=== PATIENT | female | born 1970 | race Caucasian/White ===

== ENCOUNTER 2018-10-10 06:44 | Emergency (ER) | payer OTHER ==
[~2018-10-10] VITALS: Ht 170.2 cm; Wt 68.0 kg
[2018-10-10] MEDS ORDERED: NITROGLYCERIN SUBLINGUAL 0.4 MG BOTTLE OF 25. SL PRN (07:00)
[2018-10-10] MEDS ORDERED: ASPIRIN 325 MG TABLET PO ONE (07:00)
--- NOTE | 2018-10-10 07:10 | PHYS DOC ---
Past Medical History Past Medical History: Arthritis Past Surgical History: , Hysterectomy Additional Past Surgical Histo: rhinoplasty, breast augmentation Alcohol Use: Occasionally Drug Use: None Adult General Chief Complaint Chief Complaint: CHEST PAIN HPI HPI Patient is a 48 year old male presented to ER today for evaluation of left- sided chest pain while she was doing CROSSF[employer], working out this morning. Patient was doing her normal [employer] routine, lifting weight, when she started having pain on the left-sided her chest, she was sweaty and felt nauseous. She stopped the work out and lay down on her back. She felt better then start working out and then started having the pain again. So she stopped and went home. She continued to have pain when she takes a deep breath. The chest pain is worse with cough or movement of her left shoulder. Patient denies any history of hypertension no history of high cholesterol no history of blood clot disorder. Patient had no history of coronary artery disease. Patient denies any family history of coronary artery disease or blood clot disorder. Patient is not a smoker, she is not on any control medication. Patient had no recent travel or operation. Review of Systems Review of Systems Constitutional: Denies fever or chills [] Eyes: Denies change in visual acuity, redness, or eye pain [] HENT: Denies nasal congestion or sore throat [] Respiratory: Denies cough or shortness of breath [] Cardiovascular: Positive for chest pain GI: Denies abdominal pain, vomiting, bloody stools or diarrhea. Positive for nausea : Denies dysuria or hematuria [] Musculoskeletal: Denies back pain or joint pain [] Integument: Denies rash or skin lesions [] Neurologic: Denies headache, focal weakness or sensory changes [] Endocrine: Denies polyuria or polydipsia [] All other systems were reviewed and found to be within normal limits, except as documented in this note. Current Medications Current Medications Current Medications Medications (Trade) Dose Ordered Sig/Karo Start Time Stop Time Status Last Admin Dose Admin Aspirin (Lacie Aspirin) 325 mg 1X ONCE 10/10/18 07:00 10/10/18 07:01 DC 10/10/18 07:20 325 MG Ketorolac Tromethamine (Toradol 30mg Vial) 30 mg 1X ONCE 10/10/18 08:15 10/10/18 08:16 DC 10/10/18 08:15 30 MG Nitroglycerin (Nitrostat) 0.4 mg PRN Q5MIN PRN 10/10/18 07:00 10/11/18 06:59 Sodium Chloride 1,000 ml @ 1,000 mls/hr 1X ONCE 10/10/18 08:15 10/10/18 09:14 10/10/18 08:15 1,000 MLS/HR Allergies Allergies Allergies Coded Allergies Type Severity Reaction Last Updated Verified No Known Drug Allergies 10/10/18 No Physical Exam Physical Exam Constitutional: Well developed, well nourished, no acute distress, non-toxic appearance. [] HENT: Normocephalic, atraumatic, bilateral external ears normal, oropharynx moist, no oral exudates, nose normal. [] Eyes: PERRLA, EOMI, conjunctiva normal, no discharge. [] Neck: Normal range of motion, no tenderness, supple, no stridor. [] Cardiovascular:Heart rate regular rhythm, no murmur. Lungs & Thorax: Bilateral breath sounds clear to auscultation. Chest pain is reproducible to palpation. Abdomen: Bowel sounds normal, soft, no tenderness, no masses, no pulsatile masses. [] Skin: Warm, dry, no erythema, no rash. [] Back: No tenderness, no CVA tenderness. [] Extremities: No tenderness, no cyanosis, no clubbing, ROM intact, no edema. [] Neurologic: Alert and oriented X 3, normal motor function, normal sensory function, no focal deficits noted. [] Psychologic: Affect normal, judgement normal, mood normal. [] Current Patient Data Vital Signs Vital Signs Date Time Temp Pulse Resp B/P (MAP) Pulse Ox O2 Delivery O2 Flow Rate FiO2 10/10/18 07:30 68 16 104/62 (76) 100 Room Air 10/10/18 06:47 98.0 98.0 Lab Values Laboratory Tests Test 10/10/18 06:56 White Blood Count 4.3 x10^3/uL (4.0-11.0) Red Blood Count 4.43 x10^6/uL (3.50-5.40) Hemoglobin 13.9 g/dL (12.0-15.5) Hematocrit 41.2 % (36.0-47.0) Mean Corpuscular Volume 93 fL (79-100) Mean Corpuscular Hemoglobin 31 pg (25-35) Mean Corpuscular Hemoglobin Concent 34 g/dL (31-37) Red Cell Distribution Width 13.8 % (11.5-14.5) Platelet Count 224 x10^3/uL (140-400) Neutrophils (%) (Auto) 60 % (31-73) Lymphocytes (%) (Auto) 28 % (24-48) Monocytes (%) (Auto) 9 % (0-9) Eosinophils (%) (Auto) 2 % (0-3) Basophils (%) (Auto) 1 % (0-3) Neutrophils # (Auto) 2.6 x10^3uL (1.8-7.7) Lymphocytes # (Auto) 1.2 x10^3/uL (1.0-4.8) Monocytes # (Auto) 0.4 x10^3/uL (0.0-1.1) Eosinophils # (Auto) 0.1 x10^3/uL (0.0-0.7) Basophils # (Auto) 0.0 x10^3/uL (0.0-0.2) Prothrombin Time 12.0 SEC (11.7-14.0) Prothrombin Time INR 0.9 (0.8-1.1) PTT 33 SEC (24-38) Sodium Level 145 mmol/L (136-145) Potassium Level 3.9 mmol/L (3.5-5.1) Chloride Level 107 mmol/L (98-107) Carbon Dioxide Level 29 mmol/L (21-32) Anion Gap 9 (6-14) Blood Urea Nitrogen 21 mg/dL (7-20) H Creatinine 0.8 mg/dL (0.6-1.0) Estimated GFR (Cockcroft-Gault) 75.9 BUN/Creatinine Ratio 26 (6-20) H Glucose Level 93 mg/dL (70-99) Calcium Level 9.1 mg/dL (8.5-10.1) Magnesium Level 2.1 mg/dL (1.8-2.4) Total Bilirubin 1.3 mg/dL (0.2-1.0) H Aspartate Amino Transferase (AST) 25 U/L (15-37) Alanine Aminotransferase (ALT) 20 U/L (14-59) Alkaline Phosphatase 57 U/L (46-116) Creatine Kinase 133 U/L (26-192) Creatine Kinase MB (Mass) 1.8 ng/mL (0.0-3.6) Creatine Kinase MB Relative Index 1.4 % (0-4) Troponin I Quantitative < 0.017 ng/mL (0.000-0.055) UL-Htb-B-Type Natriuretic Peptide 62 pg/mL (0-124) Total Protein 6.9 g/dL (6.4-8.2) Albumin 3.7 g/dL (3.4-5.0) Albumin/Globulin Ratio 1.2 (1.0-1.7) Lipase 150 U/L (73-393) Laboratory Tests 10/10/18 06:56 Laboratory Tests 10/10/18 06:56 EKG EKG EKG WAS READ BY THIS PHYSICIAN AT 0651, RATE OF 62 BPM, NO STEMI, SINUS RHYTHM Radiology/Procedures Radiology/Procedures [][facility] [address] [place], [place] [id number] IMAGING REPORT Signed PATIENT: PRISCILLA GARCIA ACCOUNT: [id number] : 1970 LOCATION: ER AGE: 48 SEX: F EXAM STATUS: REG ER ORD. PHYSICIAN: MAHENDRA QUINTEROS DO REASON: chest pain PROCEDURE: PORTABLE CHEST 1V PROCEDURE: PORTABLE CHEST 1V CLINICAL INDICATION: CHEST PAIN COMPARISON: None FINDINGS: No pneumothorax identified. Cardiac and mediastinal contours unremarkable. No pulmonary consolidation or acute airspace disease. No acute osseous abnormalities identified. IMPRESSION: No pulmonary consolidation or acute airspace disease. Electronically signed by: Daniel Gunter DO (10/10/2018 7:40 AM) [facility] DICTATED and SIGNED BY: DANIEL GUNTER DO DATE: 10/10/18 0058 Course & Med Decision Making Course & Med Decision Making Pertinent Labs and Imaging studies reviewed. (See chart for details) [] Dragon Disclaimer Dragon Disclaimer This electronic medical record was generated, in whole or in part, using a voice recognition dictation system. Departure Departure Impression: Primary Impression: Chest pain Disposition: 01 HOME, SELF-CARE Condition: IMPROVED Patient Instructions: Chest Pain (Nonspecific) Additional Instructions: follow up with your doctor for reevaluation in 2 days if not improved. MAHENDRA QUINTEROS DO Oct 10, 2018 07:10
[2018-10-10 07:12] LABS: BASO % 1 % (0-3); EOS # 0.1 x10^3/uL (0.0-0.7); EOS % 2 % (0-3); HEMATOCRIT 41.2 % (36.0-47.0); HEMOGLOBIN 13.9 g/dL (12.0-15.5); LYMPH # 1.2 x10^3/uL (1.0-4.8); LYMPH % 28 % (24-48); MEAN CORPUSCULAR HEMOGLOBIN 31 pg (25-35); MEAN CORPUSCULAR HGB CONC 34 g/dL (31-37); MEAN CORPUSCULAR VOLUME 93 fL (79-100); MONO # 0.4 x10^3/uL (0.0-1.1); MONO % 9 % (0-9); NEUT # 2.6 x10^3uL (1.8-7.7); NEUT % 60 % (31-73); PLATELET COUNT 224 x10^3/uL (140-400); RED BLOOD COUNT 4.43 x10^6/uL (3.50-5.40); RED CELL DISTRIBUTION WIDTH 13.8 % (11.5-14.5); WHITE BLOOD COUNT 4.3 x10^3/uL (4.0-11.0)
[2018-10-10 07:25] LABS: CALCIUM 9.1 mg/dL (8.5-10.1); CREATININE 0.8 mg/dL (0.6-1.0); GFR 75.9; POTASSIUM 3.9 mmol/L (3.5-5.1)
[2018-10-10 07:31] LABS: ALBUMIN 3.7 g/dL (3.4-5.0); ALBUMIN/GLOBULIN RATIO 1.2 (1.0-1.7); MAGNESIUM 2.1 mg/dL (1.8-2.4); TOTAL BILIRUBIN 1.3 mg/dL (0.2-1.0); TOTAL PROTEIN 6.9 g/dL (6.4-8.2)
--- NOTE | 2018-10-10 07:43 | RAD ---
PROCEDURE: PORTABLE CHEST 1V CLINICAL INDICATION: CHEST PAIN COMPARISON: None FINDINGS: No pneumothorax identified. Cardiac and mediastinal contours unremarkable. No pulmonary consolidation or acute airspace disease. No acute osseous abnormalities identified. IMPRESSION: No pulmonary consolidation or acute airspace disease. Electronically signed by: Daniel Medrano DO (10/10/2018 7:40 AM) [facility]
[2018-10-10] MEDS ORDERED: KETOROLAC 30 MG/ML VIAL. IV ONE (08:15)
[2018-10-10] MEDS ORDERED: IV NORMAL SALINE 1000ML BAG 1,000 ML IV ONE (08:15)
--- NOTE | 2018-10-10 08:24 | EKG ---
[facility] [address] [place] [address] Test Date: 2018-10-10 Test Time: 06:49:47 Pat Name: PRISCILLA GARCIA Department: Room: Gender: F Manager Immunology: : 1970 Requested By: MAHENDRA QUINTEROS Order Number: [id number] Reading MD: Ollie La MD Measurements Intervals Wilmer Rate: 62 P: 33 WI: 144 QRS: 34 QRSD: 78 T: 28 QT: 388 QTc: 396 Interpretive Statements SINUS RHYTHM Electronically Signed On 10-12-2018 16:22:06 CDT by Ollie La MD
[2018-10-10 08:49] LABS: BILIRUBIN,URINE NEGATIVE (NEG); CLARITY,URINE CLEAR; COLOR,URINE YELLOW; NITRITE,URINE NEGATIVE (NEG); PH,URINE 6.5; PROTEIN,URINE NEGATIVE (NEG-TRACE); UROBILINOGEN,URINE 0.2 mg/dL (0.2 mg/dL)
[2018-10-10 09:11] LABS: BACTERIA,URINE 0 /HPF (0-FEW); RBC,URINE 0 /HPF (0-2); SQUAMOUS EPITHELIAL CELL,UR FEW /LPF; WBC,URINE 0 /HPF (0-4)
[2018-10-10 09:20] VITALS: BP 101/66
== END 2018-10-10 10:06 | disposition home or self-care (01) ==
LOC: ER 06:44
DX: R07.89 Other chest pain (principal); M19.90 Unspecified osteoarthritis, unspecified site; Z98.890 Other specified postprocedural states; Z90.710 Acquired absence of both cervix and uterus; Z79.82 Long term (current) use of aspirin
CPT/HCPCS: 36415; 71045; 80053; 81001; 82550; 82553; 83690; 83735; 83880; 84484; 85025; 85610; 85730; 93005; 96374; 99284; J1885; J7030

== ENCOUNTER → 2020-10-21 | Outpatient (CLI) | payer OTHER ==
[~2020-10-21] MED LIST: CELE100C PO; ESTROTEST
--- NOTE | 2020-10-21 12:51 | PDOC1 ---
INITIAL PAIN CONSULT DATE OF SERVICE: DOS: DATE: 10/21/20 TIME: 12:43 CHIEF COMPLAINT: Chief Complaint: Neck and left upper extremity pain HISTORY OF PRESENT ILLNESS: 50-year-old female presents with history of pain base the neck and left shoulder for about 1 year not result of any specific injury or accident she is aware of but was doing some weightlifting and exercises and the pain began to get worse in the base the neck and left shoulder now radiating to left upper extremity as well. Patient reports is gotten worse with increased activity she has tried physical therapy also chiropractic treatment is doing exercise daily trigger point injections as well all towards the end of 2019 with improvement but only limited improvement. Patient reports she takes Celebrex as well as methocar bamol -Celebrex does help and takes the pain away about 50% patient . Patient reports the pain is sharp and stabbing in the base the neck and left upper extremity shooting in the arm tingling pain in the base the neck and shoulder as well as some numbness sensation patient scribes as burning and cramping aching as well with some radiating pain in the left arm as well with repetitive motions reaching overhead with the left arm and any weight bearing and lifting forward or reaching forward with weightbearing activities. Patient rates her disability rating 0-10 ten me the worst is a zero in whole categories family home responsibilities, recreation, social activity, occupation, self-care, sexual behavior, life support activities. Patient had MRI scan of the cervical spine showing some stenosis and C5-6 broad posterior disc osteophyte complex mild bilateral facet hypertrophy mild bilateral neuroforaminal narrowing moderate to severe spinal canal stenosis 7 mm flattening of the spinal cord at C6-7 mild posterior disc protrusion. Patient reports no overt motor loss but significant fatigability left upper extremity compared to the right also disturbed sleeping about once or twice a night patient reports does not affect her ability to walk or perform duties she is simply putting up with the pain while she is performing her normal activities. PAST MEDICAL HISTORY: PMH: Arthritis, eyeglasses PREVIOUS SURGERIES: Past Surgical Hx: Hysterectomy 2012, right hip surgery 2013, tonsillectomy 1972, rhinoplasty 2002 CURRENT MEDICATIONS: Current Meds: Active Scripts Medications Dose Route/Sig Max Daily Dose Days Date Category [estrotest] 1 Tab DAILY 10/21/20 Reported Celebrex (Celecoxib) 100 Mg Capsule 100 Mg PO DAILY 30 10/21/20 Reported ALLERGIES; Allergies: Coded Allergies: No Known Drug Allergies (Unverified , 10/10/18) FAMILY HISTORY: Family Hx: Prostate and colon cancer, diabetes, Alzheimer's, Parkinson's disease, rheumatoid arthritis SOCIAL HISTORY: Social Hx: Patient drinks 1-2 alcoholic drinks a week on average does not smoke does not use any illegal illicit recreational drugs is lives with her spouse and one child living at home and lives locally in [place], [place] patient is active duty - [employer]. REVIEW OF SYSTEMS: ROS: Positive for those items mentioned in history of present illness, all systems are reviewed, otherwise negative ,and are complete full and well-documented on patient's chart. PHYSICAL EXAM: VS: Blood pressure is 113/79 pulse sixty-seven respiration sixteen temperature 90.2 F height is 67 inches, weight is 155 pounds PE: PHYSICAL EXAMINATION: GENERAL: The patient is awake, alert, oriented, appropriate, very pleasant demeanor HEENT: Shows normocephalic, atraumatic. Extraocular movements are intact and symmetrical. Oral cavity: Mucous membranes moist and pink. Dentition is intact. NECK: Shows anterior throat supple without palpable lymphadenopathy noted. Swallow reflex symmetrical. CHEST: Shows normal on inspection. Breath sounds are clear bilaterally, no rales rhonchi or wheezes auscultated. HEART: Shows S1, S2 clear. No murmurs auscultated. ABDOMEN: Soft, nontender, nondistended, flat. No palpable organomegaly is noted. No rebound or guarding demonstrated. BACK: Shows spine grossly in the midline. Normal-appearing cervical lordotic curvature. Cervical paraspinous muscles show symmetrical on inspection on palpation some moderate tenderness diffusely in inferior aspect with localized muscular also in the superior medial trapezius more on the left than the right but without specific trigger points without radiation of pain. Patient is good rotation motion of the cervical spine with some moderate discomfort noted with left lateral rotation past 45 degrees closer to 90 degrees and pulling sensation with right lateral rotation to the same degree. Patient shows full extension full forward flexion without significant increase in pain with either. There is slightly increased thoracic kyphosis, some minor flattening of the lumbar lord otic curvature. EXTREMITIES: Upper extremities show deep tendon reflexes 2+ in the biceps and triceps tendons. Motor exam is five on a scale of 5 with right cross tie turner strength, biceps and triceps flexion and five/5 on the left. Peripheral pulses are 2+ radial. No peripheral edema is noted bilaterally. Upper extremities are warm and dry to touch, equal in color and appearance. SKIN: Shows warm and dry, good turgor. No edema. No sores, rashes or bruising throughout. IMPRESSION: Impression: 50-year-old female with approximate 1 year history of pain base of neck left upper extremity radicular fashion MRI scan cervical spine as noted History of arthritis Plan: Options were discussed with the patient including conservative medical management physical therapy local techniques. Patient has had multiple bouts of physical therapy as well as chiropractic treatment and dry needling and would like to proceed with interventional techniques. We discussed a cervical epidural steroid injection using description as well as anatomical models described procedure. We will wait for preauthorization with patient's insurance provider once is obtained we will have her return for translaminar approach C6- 7 level cervical epidural steroid injection at that time. In the meantime patient will continue with oral analgesics and Celebrex as well as stretching strengthening as currently. TERESA NGUYEN MD Oct 21, 2020 12:51
== END | disposition home or self-care (01) ==
LOC: PNCL 10:23
PROVIDERS: ATTEND Anesthesiology
DX: M54.2 Cervicalgia (principal); M79.602 Pain in left arm; M19.90 Unspecified osteoarthritis, unspecified site; Z90.710 Acquired absence of both cervix and uterus; Z98.890 Other specified postprocedural states; Z79.899 Other long term (current) drug therapy; Z72.89 Other problems related to lifestyle
CPT/HCPCS: 99205; G0463

== ENCOUNTER → 2020-10-30 | Outpatient (CLI) | payer OTHER ==
[~2020-10-30] MED LIST changes: +IOHEXOL 180 MG/ML 10 ML VIAL. ONE; +methylPREDNISolone ACETATE 40 MG/ML VIAL. ONE; +methylPREDNISolone ACETATE 80 MG/ML VIAL. ONE
--- NOTE | 2020-10-30 09:43 | PDOC4 ---
PROCEDURE Procedure Patient was consented for cervical epidural steroid injection. Risks were d iscussed including but not limited to: Bleeding, infection, possibility of epidural hematoma and subsequent neurological compromise, dural puncture, headaches, spinal cord and/or nerve damage, side effects of steroid medication, and poor results regarding pain control. Patient understands and wished to proceed. Procedure cervical epidural steroid injection at the C6-7 level, using local anesthetic under sterile prep and drape using C-arm fluoroscopic guidance under local anesthesia medications injected ; 120 to mg Depo-Medrol + 5 mL normal saline and 2 mL contrast; condition at discharge is stable patient tolerated procedure well. and had no complications TERESA NGUYEN MD Oct 30, 2020 09:43
--- NOTE | 2020-10-30 09:43 | PDOC ---
Progress Note - Pain Clinic Date of Service: DOS: DATE: 10/30/20 TIME: 09:40 Diagnosis: Dx: Cervical radiculopathy with cervical degenerative disease and cervical spinal stenosis History or Present Illness: HPI: 50-year-old female returns follow-up status post initial evaluation and preauthorization for cervical epidural steroid injection. Patient would like to proceed. Patient reports still significant pain base the neck and the left shoulder and upper extremity patient reports is a 5 on a scale 10 is worse over the past week for an average 1 at its least and is a 5 today patient ports aching tight tingling burning cramping in the left shoulder and base the neck pain can be constant at times patient reports no new motor or sensory deficits no new bowel or bladder incontinence or other complaints. Physical Exam: VS: Blood pressure is 108/70 pulse 73 respirations 16 temperature 98.2 F height is 67 inches weight is 150 pounds PE: PHYSICAL EXAMINATION: GENERAL: The patient is awake, alert, oriented, appropriate, very pleasant demeanor HEENT: Shows normocephalic, atraumatic. Extraocular movements are intact and symmetrical. Oral cavity: Mucous membranes moist and pink. NECK: Shows anterior throat supple without palpable lymphadenopathy noted. Swallow reflex symmetrical. CHEST: Shows normal on inspection. Breath sounds are clear bilaterally. HEART: Shows S1, S2 clear. No murmurs auscultated. ABDOMEN: Soft, nontender, nondistended, flat. No palpable organomegaly is n oted. No rebound or guarding demonstrated. BACK: Shows spine grossly in the midline. Normal-appearing cervical lordotic curvature. There is slightly increased thoracic kyphosis, some minor flattening of the lumbar lordotic curvature. Cervical paraspinous muscles show symmetrical inspection with palpation some moderate tenderness diffusely in the inferior aspect of the cervical paraspinous muscles are more on the left than the right and into the superior medial trapezius without specific trigger points without atrophy or hypertrophy. Patient shows good rotation motion cervical spine both laterally as well as extension flexion without significant limitation. EXTREMITIES: Upper extremities show deep tendon reflexes 2+ in the biceps and triceps tendons. Motor exam is 5 on a scale of 5 with right rib strength, biceps and triceps flexion and 5/5 on the left. Peripheral pulses are 2+ radial. No peripheral edema is noted bilaterally. Upper extremities are warm and dry to touch, equal in color and appearance. SKIN: Shows warm and dry, good turgor. No edema. No sores, rashes or bruising throughout. Procedure: Procedure: Options were discussed with the patient. Patient's chart was reviewed as her current medication regimen updated current review of systems updated today as well. We will proceed with a cervical epidural steroid injection today with f luoroscopic guidance. Risks were discussed including but not limited to: Bleeding, infection, possibility of epidural hematoma and subsequent neurological compromise, dural puncture, headaches, spinal cord and/or nerve damage, side effects of steroid medication, and poor results regarding pain control. Patient understands and wished to proceed. She will return to the clinic in approximate 2 weeks for follow-up, was counseled as return appointment activity level and side effects to be aware of. Medication Injected: Med Injected: Procedure cervical epidural steroid injection at the C6-7 level, using local anesthetic under sterile prep and drape using C-arm fluoroscopic guidance under local anesthesia medications injected ; 120 mg Depo-Medrol + 5 mL normal saline and 2 mL contrast; condition at discharge is stable patient tolerated procedure well. and had no complications Condition at Discharge: Condition at Discharge: Condition at discharge stable, patient tolerated procedure well and had no complications. TERESA NGUYEN MD Oct 30, 2020 09:43
== END | disposition home or self-care (01) ==
LOC: PNCL 08:29
PROVIDERS: ATTEND Anesthesiology
DX: M50.10 Cervical disc disorder with radiculopathy, unspecified cervical region (principal); M48.02 Spinal stenosis, cervical region; Z79.899 Other long term (current) drug therapy; Z72.89 Other problems related to lifestyle
CPT/HCPCS: 62321; J1030; J1040; Q9965

== ENCOUNTER → 2021-01-29 | Outpatient (CLI) | payer OTHER ==
[~2021-01-29] MED LIST changes: -IOHEXOL 180 MG/ML 10 ML VIAL. ONE; -methylPREDNISolone ACETATE 40 MG/ML VIAL. ONE; -methylPREDNISolone ACETATE 80 MG/ML VIAL. ONE
--- NOTE | 2021-01-29 08:07 | PDOC ---
Progress Note - Pain Clinic Date of Service: DOS: DATE: 01/29/21 TIME: 08:02 Diagnosis: Dx: Cervical radiculopathy with cervical degenerative disease and cervical spinal stenosis History or Present Illness: HPI: 50-year-old female returns to follow-up status post cervical epidural steroid action x1 October 30, 2020. Patient reports about 2 months of near 100% improvement in the pain in the base the neck and the left upper extremity now returning over the past week or 2 radiating to left arm shoulder especially in the base the neck and the left side of the shoulder posterior deltoid into the triceps into the forearm as well with some tingling burning cramping and stabbing sensation in the neck and the arm aching dull tight and shooting at times radiating the left arm which can be constant with activity lifting and reaching activities. Patient rates her pain is a 6 on scale 10 is worse with the past week 3 on average to its least is a 3 today. Patient reports no new motor or sensory deficits no new bowel or bladder incontinence patient reports about 2 weeks ago the pain began escalate tingling in the neck and left shoulder and is progressed but is not near baseline patient reports he is sleeping better initially doing activity exercise without any discomfort walking doing household activities work activities as well as travel with greater ease and comfort. Now the pain is returning in the left upper extremity radicular fashion. Physical Exam: VS: Blood pressure is 116/71 pulse 94 respirations 16 temperature 97.7 F height is 67 inches weight 144 pounds PE: PHYSICAL EXAMINATION: GENERAL: The patient is awake, alert, oriented, appropriate, very pleasant in demeanor. HEENT: Shows normocephalic, atraumatic. Extraocular movements are intact and symmetrical. Oral cavity: Mucous membranes moist and pink. Dentition is intact. NECK: Shows anterior throat supple without palpable lymphadenopathy noted. Swallow reflex symmetrical. CHEST: Shows normal on inspection. Breath sounds are clear bilaterally. HEART: Shows S1, S2 clear. No murmurs auscultated. ABDOMEN: Soft, nontender, nondistended. BACK: Shows spine grossly in the midline. Normal-appearing cervical lordotic curvature. Cervical paraspinous muscles show symmetrical with inspection on palpation some moderate tenderness in the inferior aspect of the cervical paraspinous muscles on the left into the superior medial trapezius on the left side only without specific trigger points right side is nontender. Patient shows full rotation of the cervical spine both laterally as well as extension flexion without significant difficulty. There is slightly increased thoracic kyphosis, some minor flattening of the lumbar lordotic curvature. EXTREMITIES: Upper extremities show deep tendon reflexes 2+ in the biceps and triceps tendons. Motor exam is 5 on a scale of 5 with right strength, biceps and triceps flexion and 5/5 on the left. Peripheral pulses are 2+ radial. No peripheral edema is noted bilaterally. Upper extremities are warm and dry to touch, equal in color and appearance. SKIN: Shows warm and dry, good turgor. No edema. No sores, rashes or bruising throughout. Procedure: Procedure: Options discussed with patient. Patient chart was reviewed as her current medication regimen updated current review of systems updated today as well. We will preauthorize patient for second cervical epidural steroid injection with fluoroscopic guidance. Patient continue with stretching strength exercises as currently as well as oral analgesics. Once approved, patient return for translaminar C6-7 level cervical epidural steroid injection with fluoroscopic guidance. Medication Injected: Med Injected: None Condition at Discharge: Condition at Discharge: Condition at discharge is stable TERESA NGUYEN MD Jan 29, 2021 08:06
== END | disposition home or self-care (01) ==
LOC: PNCL 07:35
PROVIDERS: ATTEND Anesthesiology
DX: M50.10 Cervical disc disorder with radiculopathy, unspecified cervical region (principal); M48.02 Spinal stenosis, cervical region; Z79.899 Other long term (current) drug therapy; Z72.89 Other problems related to lifestyle
CPT/HCPCS: 99212; G0463

== ENCOUNTER → 2021-02-12 | Outpatient (CLI) | payer OTHER ==
[~2021-02-12] MED LIST changes: +IOHEXOL 180 MG/ML 10 ML VIAL. ONE; +methylPREDNISolone ACETATE 40 MG/ML VIAL. ONE; +methylPREDNISolone ACETATE 80 MG/ML VIAL. ONE
--- NOTE | 2021-02-12 08:14 | PDOC ---
Progress Note - Pain Clinic Date of Service: DOS: DATE: 02/12/21 TIME: 08:10 Diagnosis: Dx: Cervical radiculopathy with cervical degenerative disc disease History or Present Illness: HPI: 50-year-old female returns for follow-up status post cervical epidural steroid action x1 last on October 30, 2020. Patient reports he did very well near understand improvement for about 2 months pain began to return and then over the past few weeks in the base the neck and the left shoulder and upper extremity patient reports 6 not quite back to baseline but is becoming more noticeable daily she has had some massage therapy which helps also doing strengthening stretching exercises on her own daily patient rates her pain a 4 on a scale of 10 is worse over the past week 2 on average 1 at its least and is a 1 today. Patient reports no new motor or sensory deficits no loss of motor function but some weakness in the left upper extremity with repetitive motions or weight lifting but only minor. Patient rates the pain is dull and tight in the neck shooting in the left shoulder and arm tingling burning cramping stabbing can be radiating constant occasionally will radiate into the side of the neck towards the ear as well but only rarely. Patient reports it wakes her from sleep about once every 5 or 6hours when she is laying on her left side. Patient continues with repositioning back to sleep patient is been taking new medication of Aleve twice daily which does decrease the pain by moderate extent. Physical Exam: VS: Blood pressure is 103/70 pulse 62 respirations 16 temperature 90.0 F height 67 inches weight is 147 pound PE: PHYSICAL EXAMINATION: GENERAL: The patient is awake, alert, oriented, appropriate, very pleasant in demeanor. HEENT: Shows normocephalic, atraumatic. Extraocular movements are intact and symmetrical. Oral cavity: Mucous membranes moist and pink. Dentition is intact. NECK: Shows anterior throat supple without palpable lymphadenopathy noted. Swallow reflex symmetrical. CHEST: Shows normal on inspection. Breath sounds are clear bilaterally, no rales or rhonchi. HEART: Shows S1, S2 clear. No murmurs auscultated. ABDOMEN: Soft, nontender, nondistended. BACK: Shows spine grossly in the midline. Normal-appearing cervical lordotic curvature. Cervical paraspinous muscles show symmetrical with inspection, on palpation some moderate tenderness in the inferior aspect cervical paraspinous muscle on the left only and into the superior medial trapezius but without atrophy hypertrophy without trigger points or radiation. Patient shows full rotation of motion cervical spine both laterally as well as extension flexion without significant difficulty. There is slightly increased thoracic kyphosis. EXTREMITIES: Upper extremities show deep tendon reflexes 2+ in the biceps and triceps tendons. Motor exam is 5 on a scale of 5 with right jacquard fixer strength, biceps and triceps flexion and 5/5 on the left. Peripheral pulses are 2+ radial. No peripheral edema is noted bilaterally. Upper extremities are warm and dry to touch, equal in color and appearance. SKIN: Shows warm and dry, good turgor. No edema. No sores, rashes or bruising throughout. Procedure: Procedure: Options discussed with patient. Patient chart was reviewed as her current medication regimen updated current review of systems updated today as well. We will proceed with a second in the series cervical epidural steroid injection today with fluoroscopic guidance. Risks were discussed including but not limited to: Bleeding, infection, possibility of epidural hematoma and subsequent neurological compromise, dural puncture, headaches, spinal cord and/or nerve damage, side effects of steroid medication, and poor results regarding pain control. Patient understands and wished to proceed. Patient will return to the clinic in approximate 2 weeks for follow-up, was counseled as return appointment active level and side effects to be aware of. Medication Injected: Med Injected: Procedure cervical epidural steroid injection at the C6-7 level, using local anesthetic under sterile prep and drape using C-arm fluoroscopic guidance under local anesthesia medications injected ;120 mg Depo-Medrol +5 mL normal saline and 2 mL contrast; condition at discharge is stable patient tolerated procedure well. and had no complications Condition at Discharge: Condition at Discharge: Condition at discharge is stable, patient alert procedure well and had no compli cations. TERESA NGUYEN MD Feb 12, 2021 08:14
--- NOTE | 2021-02-12 08:15 | PDOC4 ---
Procedure Note: ICD 10 Code: ICD 10 Code: M 54.12 M 48.02 M50.30 Procedure Note: Patient was consented for cervical epidural steroid injection. Risks were discussed including but not limited to: Bleeding, infection, possibility of epidural hematoma and subsequent neurological compromise, dural puncture, headaches, spinal cord and/or nerve damage, side effects of steroid medication, and poor results regarding pain control. Patient understands and wished to proceed. Procedure cervical epidural steroid injection at the C6-7 level, using local anesthetic under sterile prep and drape using C-arm fluoroscopic guidance under local anesthesia medications injected ;120 mg Depo-Medrol +5 mL normal saline and 2 mL contrast; condition at discharge is stable patient tolerated procedure well. and had no complications TERESA NGUYEN MD Feb 12, 2021 08:15
== END | disposition home or self-care (01) ==
LOC: PNCL 07:24
PROVIDERS: ATTEND Anesthesiology
DX: M50.10 Cervical disc disorder with radiculopathy, unspecified cervical region (principal); Z79.899 Other long term (current) drug therapy; Z72.89 Other problems related to lifestyle
CPT/HCPCS: 62321; J1030; J1040; Q9965

== ENCOUNTER → 2021-02-26 | Outpatient (CLI) | payer OTHER ==
[~2021-02-26] MED LIST changes: -IOHEXOL 180 MG/ML 10 ML VIAL. ONE; -methylPREDNISolone ACETATE 40 MG/ML VIAL. ONE; -methylPREDNISolone ACETATE 80 MG/ML VIAL. ONE
--- NOTE | 2021-02-26 08:16 | PDOC ---
Progress Note - Pain Clinic Date of Service: DOS: DATE: 02/26/21 TIME: 08:12 Diagnosis: Dx: Cervical radiculopathy with cervical spinal stenosis and cervical degenerative disc disease History or Present Illness: HPI: 50-year-old female returns for follow-up status post cervical epidural steroid injection x2. Patient reports 95% improvement after the last injection with some tingling now in the left shoulder and arm but very minimal patient reports increased activity with greater ease and comfort doing distance walking doing household activities work activities try with greater ease and comfort sleeping better at night no real limiting effect to the pain and tingling that left patient reports is a 2 on scale 10 is worse over the past week 1 on average 1 its least is a 1 today patient reports it is tight tingling burning cramping in the shoulder on the left side only can be constant with activity but most activities are very tolerable no strength loss no deficits no new motor or sensory changes. Patient reports that "just feels tight" in the base of the left neck and shoulder but no further radiation. Physical Exam: VS: Blood pressure is 118/72 pulse 68 respiration 16 temperature 90.1 F weight is 146 pounds PE: PHYSICAL EXAMINATION: GENERAL: The patient is awake, alert, oriented, appropriate, very pleasant in demeanor. HEENT: Shows normocephalic, atraumatic. Extraocular movements are intact and symmetrical. Oral cavity: Mucous membranes moist and pink. Dentition is in tact. NECK: Shows anterior throat supple without palpable lymphadenopathy noted. Swallow reflex symmetrical. CHEST: Shows normal on inspection. Breath sounds are clear bilaterally, no rales or rhonchi. HEART: Shows S1, S2 clear. No murmurs auscultated. ABDOMEN: Soft, nontender, nondistended, flat. No palpable organomegaly is noted. BACK: Shows spine grossly in the midline. Normal-appearing cervical lordotic curvature. Cervical paraspinous muscles show symmetrical inspection, on palpation some moderate tenderness diffusely in the inferior aspect cervical paraspinous muscle on the left only but no asymmetry no trigger points no radiation of pain. Patient shows full rotation motion cervical spine both laterally as well as extension flexion without significant difficulty. There is slightly increased thoracic kyphosis, some minor flattening of the lumbar lordotic curvature. EXTREMITIES: Upper extremities show deep tendon reflexes deep in the biceps and triceps tendons. Motor exam is 5 on a scale of 5 with right freight traffic consultant strength, biceps and triceps flexion and 5/5 on the left. Peripheral pulses are 2+ radial. No peripheral edema is noted bilaterally. Upper extremities are warm and dry to touch, equal in color and appearance. SKIN: Shows warm and dry, good turgor. No edema. No sores, rashes or bruising throughout. Procedure: Procedure: Options discussed with the patient. Patient's old chart was reviewed as her current medication regimen updated current review of systems updated today as well. We will hold on any further injections at this time as patient is doing quite a bit better. Patient was encouraged to increase activity as tolerated maintain stretching strength exercises as currently and will follow up on as-ne eded basis at this time. Medication Injected: Med Injected: None Condition at Discharge: Condition at Discharge: Condition at discharge is stable. TERESA NGUYEN MD Feb 26, 2021 08:16
== END | disposition home or self-care (01) ==
LOC: PNCL 07:51
PROVIDERS: ATTEND Anesthesiology
DX: M50.10 Cervical disc disorder with radiculopathy, unspecified cervical region (principal); M48.02 Spinal stenosis, cervical region; Z79.899 Other long term (current) drug therapy; Z72.89 Other problems related to lifestyle
CPT/HCPCS: 99212; G0463

== ENCOUNTER → 2021-09-09 | Outpatient (CLI) | payer OTHER ==
--- NOTE | 2021-09-09 08:25 | PDOC ---
Progress Note - Pain Clinic Date of Service: DOS: DATE: 09/09/21 TIME: 08:20 Diagnosis: Dx: Cervical radiculopathy with cervical degenerative disease and cervical spinal stenosis History or Present Illness: HPI: 51-year-old female returns for follow-up status post cervical epidural steroid injection last seen February 26, 2021 patient had injection on JulyFebruary 12, 2021 with 95% improvement in the shoulder and left cervical radicular pain. Patient reports she is increased activity with household activities work activities travel with greater ease and comfort sleeping better at night patient reports pain is returning now over the past month or so in the base the neck and the left upper extremity rating the posterior deltoid also in the anterior bicep into the forearm and hand with some numbness and tingling in the fingers mostly the thumb and first finger on the left side patient reports no motor loss but significant fatigability with the left upper extremity with repetitive motions also some fine motor difficulties with small items and twisting such as opening a lid or bottle top patient reports no loss of motor function but again significant fatigability with these activities over the last month or so patient reports prior to that was doing much better patient reports her pain now is a 6 on scale 10 is worst for an average to its least over the past week and is a 2 today patient scribes aching tight in the neck shooting in the left upper extremity tingling burning cramping radiating and can be constant with repetitive motions reaching overhead with her left arm also sleeping on her left side is significantly tender awakens her from sleep where she must reposition to get back to sleep. Patient reports no other deficits. Patient is been using heat and massage techniques as well as stretching techniques and oral analgesics [id number] without significant long-term reduction in pain. Physical Exam: VS: Blood pressure is 114/65 pulse 62 respirations 18 temperature 90.1 F height 67 inches weight is 150 pounds PE: PHYSICAL EXAMINATION: GENERAL: The patient is awake, alert, oriented, appropriate, very pleasant in demeanor HEENT: Shows normocephalic, atraumatic. Extraocular movements are intact and symmetrical. Oral cavity: Mucous membranes moist and pink. Dentition is intact. NECK: Shows anterior throat supple without palpable lymphadenopathy noted. Swallow reflex symmetrical. CHEST: Shows normal on inspection. Breath sounds are clear bilaterally, no rales or rhonchi. HEART: Shows S1, S2 clear. No murmurs auscultated. ABDOMEN: Soft, nontender, nondistended. No palpable organomegaly is noted. BACK: Shows spine grossly in the midline. Normal-appearing cervical lordotic curvature. Cervical paraspinous muscles show symmetrical inspection, on palpation some moderate tenderness diffusely but only in the inferior aspect of the left cervical paraspinous muscles are and the superior medial trapezius on the left side as well. No trigger points no asymmetry patient shows full rotation of motion of the cervical spine both laterally as well as full extension full forward flexion without significant difficulty. There is slightly increased thoracic kyphosis, some minor flattening of the lumbar lordotic curvature. EXTREMITIES: Upper extremities show deep tendon reflexes 2+ in the patellar and tendo calcaneus tendons. Motor exam is 5 on a scale of 5 with right dorsiflexion, extension, quadriceps and hamstring flexion and 4/5 on the left. Peripheral pulses are 2+ posterior tibial. No peripheral edema is noted bilaterally. Upper extremities are warm and dry to touch, equal in color and appearance. Shoulder shrug is strong and intact without loss strength on resistance bilaterally as is abduction of the shoulder 90 degrees bilaterally without loss of strength. SKIN: Shows warm and dry, good turgor. No edema. No sores, rashes or bruising throughout. Procedure: Procedure: Options were discussed with the patient. Patient's old chart was reviewed as her current medication regimen updated current review of systems updated today as well. We will preauthorize patient for cervical epidural steroid injection as she has clinical radiculopathy in a C6-7 dermatomal distribution on the left. Meantime patient will continue with stretching strength exercise as well as heat application and massage techniques and oral analgesics as currently. Once approved, patient will return for translaminar approach C6-7 level cervical epidural steroid injection with fluoroscopic guidance. Medication Injected: Med Injected: None Condition at Discharge: Condition at Discharge: Condition at discharge is stable. TERESA NGUYEN MD Sep 09, 2021 08:25
== END | disposition home or self-care (01) ==
LOC: PNCL 07:59
PROVIDERS: ATTEND Anesthesiology
DX: M50.10 Cervical disc disorder with radiculopathy, unspecified cervical region (principal); M48.02 Spinal stenosis, cervical region; Z79.899 Other long term (current) drug therapy; Z72.89 Other problems related to lifestyle
CPT/HCPCS: 99212; G0463

== ENCOUNTER → 2021-09-24 | Outpatient (CLI) | payer OTHER ==
[~2021-09-24] MED LIST changes: +DEXAMETHASONE PRES.FREE 10 MG/ML VIAL. ONE; +IOHEXOL 180 MG/ML 10 ML VIAL. ONE
--- NOTE | 2021-09-24 10:37 | PDOC ---
Progress Note - Pain Clinic Date of Service: DOS: DATE: 09/24/21 TIME: 10:34 Diagnosis: Dx: Cervical radiculopathy with cervical degenerative disease and cervical spinal stenosis History or Present Illness: HPI: 51-year-old female returns with complaints of pain in the base the neck and left upper extremity and shoulder and now also some pain on the right side as well which is new for her but mostly on the left side as it was previously patient reports is worse with walking standing changing positions using her upper extrem ities with repetitive motions reaching above her head with her left arm some with the right arm as well however and just in the base of the neck and posterior right shoulder patient reports is worse with weightbearing repetitive motions exercising driving with her left hand and some with her right hand but mostly in the neck and shoulder and less in the arm than on the left side pa ezrant reports is aching and tight in the neck shooting in the left arm tingling burning cramping and stabbing in the neck and shoulders can be radiating constant as well patient reports generally has been waking her from sleep at night especially she lays on her left side no loss of motor function blood closely for fatigability especially with the left arm. Physical Exam: VS: Blood pressure is 170/78 pulse 73 respirations 16 0.67 inches weight is 152 pounds. PE: PHYSICAL EXAMINATION: GENERAL: The patient is awake, alert, oriented, appropriate, very pleasant in demeanor HEENT: Shows normocephalic, atraumatic. Extraocular movements are intact and symmetrical. Oral cavity: Mucous membranes moist and pink. Dentition is intact. NECK: Shows anterior throat supple without palpable lymphadenopathy noted. Swallow reflex symmetrical. CHEST: Shows normal on inspection. Breath sounds are clear bilaterally, no rales rhonchi or wheezes auscultated. HEART: Shows S1, S2 clear. No murmurs auscultated. ABDOMEN: Soft, nontender, nondistended. No palpable organomegaly is noted. BACK: Shows spine grossly in the midline. Normal-appearing cervical lordotic curvature. Cervical paraspinous muscles show symmetrical inspection on palpation some moderate tenderness diffusely throughout the upper middle lower decrease the paraspinous muscles but without significant radiation or asymmetry. Patient shows some moderate tenderness in the superior medial trapezius bilaterally worse on the left than the right but again without trigger points or radiation. Patient shows good rotation motion cervical spine both laterally as well as extension flexion. There is slightly increased thoracic kyphosis, some minor flattening of the lumbar lordotic curvature. EXTREMITIES: Upper extremities show deep tendon reflexes 2+ in the patellar and tendo calcaneus tendons. Motor exam is 5 on a scale of 5 with right dorsiflexion, extension, quadriceps and hamstring flexion and 4/5 on the left. Peripheral pulses are [] posterior tibial. No peripheral edema is noted bilaterally. LUpper extremities are warm and dry to touch, equal in color and appearance. Shoulder shrug strong intact without loss of strength on resistance bilaterally. SKIN: Shows warm and dry, good turgor. No edema. No sores, rashes or bruising throughout. Procedure: Procedure: Options discussed with patient. Patient will terms reviews her current medication regimen updated currently systems updated today as well. We will proceed with a cervical epidural steroid injection today with fluoroscopic guidance risks were discussed including but not limited to: Bleeding, infection, possibility of epidural hematoma and subsequent neurological compromise, dural puncture, headaches, spinal cord and/or nerve damage, side effects of steroid medication, and poor results regarding pain control. Patient understands and wished to proceed. Patient will return to the clinic in approximately 2 weeks for follow-up, was counseled as to return appointment, activity level, and side effects to be aware of. Medication Injected: Med Injected: Procedure cervical epidural steroid injection at the C6-7 level, using local anesthetic under sterile prep and drape using C-arm fluoroscopic guidance under local anesthesia medications injected ; 20 mg dexamethasone +5 mL normal saline and 2 mL contrast; condition at discharge is stable patient tolerated procedure well. and had no complications Condition at Discharge: Condition at Discharge: Condition at discharge stable, paced tolerated procedure well and had no complications. TERESA NGUYEN MD Sep 24, 2021 10:37
--- NOTE | 2021-09-24 10:38 | PDOC4 ---
Procedure Note: ICD 10 Code: ICD 10 Code: M54.12 M50.30 M4 8.02 Procedure Note: Patient was consented for cervical epidural steroid injection with fluoroscopic guidance. Risks were discussed including but not limited to: Bleeding, infection, possibility of epidural hematoma and subsequent neurological compromise, dural puncture, headaches, spinal cord and/or nerve damage, side effects of steroid medication, and poor results regarding pain control. Patient understands and wished to proceed. Procedure cervical epidural steroid injection at the C6-7 level, using local anesthetic under sterile prep and drape using C-arm fluoroscopic guidance under local anesthesia medications injected ; 20 mg dexamethasone +5 mL normal saline and 2 mL contrast; condition at discharge is stable patient tolerated procedure well. and had no complications TERESA NGUYEN MD Sep 24, 2021 10:38
== END | disposition home or self-care (01) ==
LOC: PNCL 09:25
PROVIDERS: ATTEND Anesthesiology
DX: M50.10 Cervical disc disorder with radiculopathy, unspecified cervical region (principal); M48.02 Spinal stenosis, cervical region; M54.12 Radiculopathy, cervical region; Z79.899 Other long term (current) drug therapy; Z72.89 Other problems related to lifestyle
CPT/HCPCS: 62321; J1100; Q9965

== ENCOUNTER → 2021-10-18 | Outpatient (CLI) | payer OTHER ==
[~2021-10-18] MED LIST changes: -DEXAMETHASONE PRES.FREE 10 MG/ML VIAL. ONE; -IOHEXOL 180 MG/ML 10 ML VIAL. ONE
--- NOTE | 2021-10-18 09:35 | PDOC ---
Progress Note - Pain Clinic Date of Service: DOS: DATE: 10/18/21 TIME: 09:31 Diagnosis: Dx: Cervical radiculopathy with cervical degenerative disease and cervical spinal stenosis History or Present Illness: HPI: 51-year-old female returns for follow-up status post cervical epidural steroid injection x1. Patient reports about 75% improvement overall with some pain in the base the neck still in the left shoulder which she noted several days after her last injection but not radiating the upper extremity significantly as it was previously patient reports the base the neck and shoulder feels tight with more pressure than usual in that area of the neck patient reports is worse with repetitive motions twisting her neck to her left side as well as with extension to some extent but is better with stretching anti-inflammatories and heat application patient reports is a 6 on scale 10 is worse over the past week for an average 3 to [place] is a 4 today patient reports aching and tight tingling burning can be cramping in sensation as well as constant in the left base of neck and shoulder patient reports it wakes her from sleep about once a night most nights when she lays on her left side. Patient reports no loss of motor function and no significant radiation to the upper extremity at this time distal to the shoulder. Physical Exam: VS: Blood pressure is 104/69 pulse 60 respirations 18 temperature 98.1 F height is 67 inches weight is 158 pounds. PE: PHYSICAL EXAMINATION: GENERAL: The patient is awake, alert, oriented, appropriate, very pleasant in demeanor HEENT: Shows normocephalic, atraumatic. Extraocular movements are intact and symmetrical. Oral cavity: Mucous membranes moist and pink. Dentition is intact. NECK: Shows anterior throat supple without palpable lymphadenopathy noted. Swallow reflex symmetrical. CHEST: Shows normal on inspection. Breath sounds are clear bilaterally. HEART: Shows S1, S2 clear. No murmurs auscultated. ABDOMEN: Soft, nontender, nondistended. No palpable organomegaly is noted. BACK: Shows spine grossly in the midline. Normal-appearing cervical lordotic curvature. Cervical paraspinous muscles show symmetrical inspection, palpation some tenderness diffusely in the left only middle and lower distribution cervical paraspinous muscle as well as into the superior medial trapezius without trigger points without atrophy or hypertrophy. Patient shows good rotation motion cervical spine with moderate tenderness with left lateral rotation past 45 degrees but rotates closer to 90 degrees without significant difficulty. There is slightly increased thoracic kyphosis, some minor shoaib ening of the lumbar lordotic curvature. EXTREMITIES: Upper extremities show deep tendon reflexes 2+ in the biceps and triceps tendons. Motor exam is 5 on a scale of 5 with right international freight forwarder, biceps and triceps flexion and 4/5 on the left. Peripheral pulses are 2+ radial. No peripheral edema is noted bilaterally. Upper extremities are warm and dry to touch, equal in color and appearance. Shoulder shrug strong intact without loss of strength on resistance bilaterally. SKIN: Shows warm and dry, good turgor. No edema. No sores, rashes or bruising throughout. Procedure: Procedure: Options were discussed with patient. Patient's old heart was reviewed as her current medication regimen updated current review of systems updated today as well. We will hold on further injections at this time patient doing quite a bit better suggested increased stretching and strengthening of the left shoulder and neck as well as massage therapy heat and cold applications and oral analgesics as currently. Patient will follow up at this time, as necessary. Medication Injected: Med Injected: None Condition at Discharge: Condition at Discharge: Condition at discharge is stable. TERESA NGUYEN MD Oct 18, 2021 09:35
== END | disposition home or self-care (01) ==
LOC: PNCL 08:23
PROVIDERS: ATTEND Anesthesiology
DX: M50.10 Cervical disc disorder with radiculopathy, unspecified cervical region (principal); M48.02 Spinal stenosis, cervical region; Z72.89 Other problems related to lifestyle
CPT/HCPCS: 99212; G0463